=== PATIENT | female | born 1930 | race Caucasian/White ===

== ENCOUNTER → 2016-05-05 | Day surgery (SDC) | payer MEDICARE, BC ==
[~2016-05-05] MED LIST: ACETAMINOPHEN PO; ALTACE PO; ALTACE10 M1 PO; ALTACE10 M2 PO; AMIODIPINE PO; AMLODIPINE BESY10 MG PO; ANTI-DIARRHEAL2 M1 PO; ATORVASTATIN PO; CIPRO PO; COUMADIN PO; COUMADIN2.5 MG PO; COUMADIN5 MG PO; GABAPENTIN PO; GABAPENTIN300 M2 PO; HYDROCODON-ACE1 EAC7 PO; HYDROCODON-ACE1 EACH PO; HYDROCODONE-APA1 T55 PO; IMDUR PO; KEFLEX500 MG PO; LASIX PO; LIPITOR40 MG PO; LOPRESSOR PO; NORCO 5MG PO; NORCO1 TAB 10/3 PO; PARAFON FORTE500 M1 PO; PLAVIX PO; POTASSIUM CHLOR8 ME2 PO; POTASSIUM CHLOR8 MEQ PO; POTASSIUM PO; PREVACID PO; PRISTIQ50 MG PO; QUESTRAN POWDER4 GM PO; RAMIPRIL PO; SIMVASTATIN80 MG PO; TOPROL XL PO; TYLOX 5/500 CAP1 CAP PO; VITAMIN D; VYTORIN PO; WALMART PHARMACY; WARFARIN PO
--- NOTE | ~2016-05-05 | OR ---
Unit #: [id number] #: [id number] Patient: SHARRON NORWOOD [id number] [address] [place], [place] [address] [id number] O MR#: [id number] NAME: SHARRON NORWOOD. ROOM: Date of Procedure: 05/05/2016 Admission Date: 05/05/2016 Surgeon: Juan Lopez M.D. : 1930 Attending Physician: Juan Lopez M.D. Referring Physician: Juan Lopez M.D. Primary Care Physician: Teja Christensen D.O. SUR[facility] CENTER OPERATIVE NOTE PROCEDURE PERFORMED Lumbar epidural steroid injection under x-ray guided needle placement with provider administered conscious sedation. PREOPERATIVE DIAGNOSES 1. Acute lumbar radiculitis. 2. Spinal stenosis, lumbosacral spine. 3. Anterolisthesis, L4-L5. 4. Degenerative joint disease, lumbosacral spine. 5. Degenerative disk disease, lumbosacral spine. 6. Facet arthrosis, lumbosacral spine. INDICATIONS FOR PROCEDURE The patient presents today with longstanding history of chronic lumbar radicular pain secondary to her underlying degenerative processes. She is generally fairly well managed medically, but does occasionally experience acute exacerbations, which to date have only responded to interventional pain management procedure. She was doing very well until approximately 2 weeks ago when she developed just such an exacerbation which broke through her use one ongoing continuous conservative measures. She presents today requesting an epidural steroid injection as well as referral for potential medical management. After discussing risks and benefits of proceeding today with a lumbar approach epidural steroid injection, the patient agreed this would be the appropriate course of action. She was also referred to Dr. Bora Gibson to take over all care including all procedures at this patient. DESCRIPTION OF PROCEDURE Following these discussions, the L4-L5 space was accessed using loss of resistance technique and x-ray guidance. Needle placement was confirmed with injection of 2 mL of Omnipaque. There was good superior and inferior flow at this L4-L5 needle placement. Following successful needle placement confirmation, the patient received an injectate containing 4 mL normal saline and 80 mg of methylprednisolone. She tolerated this procedure well. She was discharged home with followup instructions, which include an offer to return to this date on 08/13/2016 if she desired further treatment in this clinic; however, if she desires treatment at another venue, we gave her full support and will cooperate with medical records and whatever other as needed. Dictated by... Juan Lopez M.D. Unit #: [id number] #: [id number] Patient: SHARRON NORWOOD JRG/modl TD: 05/06/2016 01:08 JOB #: [id number] CC: Steven Palafox M.D. SURGERY CENTER OPERATIVE NOTE X Franco Lopez MD PROCEDURE OPERATIVE NOTE
== END | disposition home or self-care (01) ==
LOC: CCSC 09:15
DX: M47.27 Other spondylosis with radiculopathy, lumbosacral region (principal); M51.17 Intervertebral disc disorders with radiculopathy, lumbosacral region; M43.16 Spondylolisthesis, lumbar region; M48.07 Spinal stenosis, lumbosacral region; I25.10 Atherosclerotic heart disease of native coronary artery without angina pectoris; N39.3 Stress incontinence (female) (male); Z96.653 Presence of artificial knee joint, bilateral; Z90.710 Acquired absence of both cervix and uterus; Z90.2 Acquired absence of lung [part of]
CPT/HCPCS: J1040; J2250; J3010

== ENCOUNTER 2016-06-13 10:26 | Emergency (ER) | payer MEDICARE, BC ==
[~2016-06-13 10:26] MED LIST changes: -AMIODIPINE PO; -ATORVASTATIN PO; -GABAPENTIN PO; -HYDROCODON-ACE1 EAC7 PO; -LASIX PO; -NORCO 5MG PO; -POTASSIUM CHLOR8 MEQ PO; -POTASSIUM PO; -QUESTRAN POWDER4 GM PO; -RAMIPRIL PO; -VITAMIN D; -WARFARIN PO
[2016-06-18] MEDS ORDERED: QUESTRAN POWDER4 GM PO (12:29)
[2016-08-20] MEDS ORDERED: LASIX PO (11:48)
[2016-08-20] MEDS ORDERED: POTASSIUM CHLOR8 MEQ PO (11:49)
[2016-08-21] MEDS ORDERED: HYDROCODON-ACE1 EAC7 PO (08:50)
== END 2016-06-13 11:02 | disposition home or self-care (01) ==
LOC: SED 10:26
DX: L03.116 Cellulitis of left lower limb (principal); L03.115 Cellulitis of right lower limb; I11.0 Hypertensive heart disease with heart failure; I50.9 Heart failure, unspecified; Z90.49 Acquired absence of other specified parts of digestive tract; Z95.1 Presence of aortocoronary bypass graft; Z88.0 Allergy status to penicillin
CPT/HCPCS: 99282

== ENCOUNTER 2016-06-18 12:55 | Emergency (ER) | payer MEDICARE, BC ==
[~2016-06-18 12:55] MED LIST changes: +QUESTRAN POWDER4 GM PO
[2016-08-20] MEDS ORDERED: LASIX PO (11:48)
[2016-08-20] MEDS ORDERED: POTASSIUM CHLOR8 MEQ PO (11:49)
[2016-08-21] MEDS ORDERED: HYDROCODON-ACE1 EAC7 PO (08:50)
== END 2016-06-18 13:51 | disposition home or self-care (01) ==
LOC: SED 12:55
DX: S80.01XA Contusion of right knee, initial encounter (principal); W18.30XA Fall on same level, unspecified, initial encounter; Y92.531 Health care provider office as the place of occurrence of the external cause
CPT/HCPCS: 99283

== ENCOUNTER → 2016-07-18 | Outpatient (CLI) | payer MEDICARE, BC ==
[~2016-07-18] MED LIST changes: +AMIODIPINE PO; +ATORVASTATIN PO; +GABAPENTIN PO; +HYDROCODON-ACE1 EAC7 PO; +LASIX PO; +NORCO 5MG PO; +POTASSIUM CHLOR8 MEQ PO; +POTASSIUM PO; +RAMIPRIL PO; +VITAMIN D; +WARFARIN PO
--- NOTE | ~2016-07-18 | CR186 ---
[facility]. [facility] A Service of [facility] RADIOLOGY TEXT RESULTS PATIENT: SHARRON NORWOOD LOCATION: [facility] : 30 UNIT #: [id number] AGE: [address]: Bora Gibson MD SEX: F ORDER DR: [id number] [address] [address] [id number] O MR#: [id number] Acc #: [id number] NAME: SHARRON NORWOOD : 1930 SEX: F STUDY DATE/TIME: 07/18/2016 11:55 UNIT: [facility] ROOM: STUDY DESCRIPTION: CR Lumbar Spine W Bend Min 6 V Attending Physician: Bora Gibson M.D. Referring Physician: Bora Gibson M.D. Ordering Physician: Teja Christensen D.O. Primary Care Physician: Teja Christensen D.O. MEDICAL IMAGING REPORT This report is preliminary unless electronic signature is present. EXAM Four views of the lumbar spine with flexion and extension Date: 07/18/2016 HISTORY Back pain since December 2016. No known injury. COMPARISON CT abdomen and pelvis bone windows 06/19/2010. No prior dedicated lumbar spine imaging at this institution for comparison. FINDINGS AP, lateral, lateral extension and lateral flexion views were obtained. No acute lumbar spine fracture is seen. There is advanced diminished disc height at L5-S1. Facet arthropathy is present at nearly every lumbar level, thought to be greatest at L4-5 and L5-S1. There is approximately 6 mm anterolisthesis L4 upon L5 which does not appear to be exacerbated or reduced upon flexion or extension maneuvers. There is mild diminished disc height at L1-2 and L2-3. There is very mild lumbar dextroscoliosis centered at L3-4. IMPRESSION 1. A 6 mm (grade 1) anterolisthesis of L4 upon L5. No evidence of lumbar spine instability upon flexion and extension maneuvers. 2. Multilevel degenerative facet arthropathy greatest at L4-L5 and L5-S1. 3. Advanced loss of disc height at L5-S1. [facility] A Service [facility] RADIOLOGY TEXT RESULTS PATIENT: SHARRON NORWOOD LOCATION: [facility] : 30 UNIT #: [id number] AGE: [address]: Bora Gibson MD SEX: F ORDER DR: 4. Mild lumbar dextroscoliosis. Dictated by... Cynthia Martins M.D. THIS IS AN ELECTRONICALLY VERIFIED REPORT Cynthia Martins M.D. at 07/21/2016 8:33 AM SORAIDA/tangela TD: 07/18/2016 19:40 JOB #: [id number] MEDICAL IMAGING REPORT Page 1 of 1
== END | disposition home or self-care (01) ==
LOC: SRAD 11:46
DX: M54.5 Low back pain (principal); M43.16 Spondylolisthesis, lumbar region; M46.96 Unspecified inflammatory spondylopathy, lumbar region; M51.86 Other intervertebral disc disorders, lumbar region; M41.9 Scoliosis, unspecified
CPT/HCPCS: 72114

== ENCOUNTER → 2016-08-21 | Day surgery (SDC) | payer MEDICARE, BC ==
--- NOTE | ~2016-08-21 | OR ---
Unit #: [id number] #: [id number] Patient: SHARRON NORWOOD [id number] [address] [place], [place] [address] [id number] O MR#: [id number] NAME: SHARRON NORWOOD. ROOM: Date of Procedure: 08/21/2016 Admission Date: 08/21/2016 Surgeon: Bora Gibsno M.D. : 1930 Attending Physician: Bora Gibsno M.D. Primary Care Physician: Teja Christensen D.O. OPERATIVE REPORT PREOPERATIVE DIAGNOSES Back pain, spondylolisthesis, degenerative facet disease. POSTOPERATIVE DIAGNOSES Back pain, spondylolisthesis, degenerative facet disease. PROCEDURE PERFORMED Lumbar facet injection x2 levels with intravenous sedation and fluoroscopic guidance for needle localization. INDICATIONS FOR PROCEDURE The patient is an 86-year-old female with back and at times left leg pain. She was treated with rehabilitation, epidural steroid injection via different positions, and the third epidural did help to settle her left leg pain, but did not help her back very much. Workup demonstrated significant facet disease at L4-L5 and L5-S1 as well as stable spondylolisthesis at L4-L5. Plan is for trial of diagnostic and therapeutic facet injections if the patient has failed multiple attempts at conservative treatment. Risks and benefits of all reviewed. DESCRIPTION OF PROCEDURE The patient was placed in a prone position. Standard monitors were applied. 1 mg of Versed was given for sedation and anxiolysis, which were adequate. Vital signs remained stable. Sterile prep and drape then of the lumbosacral area was performed. Fluoroscopy was used to identify the location of the L4-L5 and L5-S1 facet joints. The skin overlying this was localized with 1% lidocaine. In the left side, first a 22-gauge Quincke point needles were advanced down into the L4-L5 and L5-S1 facet joints using fluoroscopic guidance. The patient had no complaints of pain or paresthesia. After confirming proper positioning within the edge of these facet joints, dose of 1 mL of a mixture of 80 mg of Depo-Medrol and 3 mL of 0.25% bupivacaine were deposited in each 0.5 mL within the joint and 0.5 mL just outside the joint. The needles were flushed and removed. The exact same procedure was then repeated at the right at the L4-L5 and L5-S1 facet joints. The same dosing of medications was used after fluoroscopic confirmation with proper needle tip positioning. The needles were flushed and removed. The patient tolerated the procedure otherwise well and was discharged to the recovery room in stable condition. Dictated by... Unit #: [id number] #: [id number] Patient: KATARINA NORWOODSteven Diez/john TD: 08/21/2016 23:23 JOB #: [id number] OPERATIVE REPORT Page 1 of 1 X Bora Gibson MD X PROCEDURE OPERATIVE NOTE
== END | disposition home or self-care (01) ==
LOC: CCSC 08:06
DX: M47.26 Other spondylosis with radiculopathy, lumbar region (principal); M43.16 Spondylolisthesis, lumbar region
CPT/HCPCS: J1040; J2250

== ENCOUNTER 2016-11-07 09:58 | Emergency (ER) | payer MEDICARE, BC ==
--- NOTE | ~2016-11-07 | CR170 ---
[facility]. [facility] A Service of [facility] RADIOLOGY TEXT RESULTS PATIENT: SHARRON NORWOOD LOCATION: SED : 30 UNIT #: [id number] AGE: [address]: Era Trujillo APRN SEX: F ORDER DR: [id number] [address] [address] [id number] MR#: [id number] Acc #: [id number] NAME: SHARRON NORWOOD. : 1930 SEX: F STUDY DATE/TIME: 11/07/2016 11:29 UNIT: SED ROOM: STUDY DESCRIPTION: CR Knee 2 Views Rt Attending Physician: Era Trujillo A.P.R.N. Ordering Physician: Era Trujillo A.P.R.N. Primary Care Physician: Teja Christensen D.O. MEDICAL IMAGING REPORT This report is preliminary unless electronic signature is present. EXAM Right knee, 2 views, 11/07/2016, 11:29 a.m.; [facility]. COMPARISON No right knee radiographs. HISTORY History sheet states abrasion and pain. Symptoms began last night and early this a.m. after falling on carpet. 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 FINDINGS No effusion or hemarthrosis is noted. Right knee arthroplasty has an unremarkable appearance. There is no periprosthetic fracture. No effusion or hemarthrosis is seen. Bones appear demineralized. Vascular calcification is noted. Suprapatellar calcification could possibly reflect a loose body. IMPRESSION 1. No acute abnormality is noted. The prosthetic right knee shows no periprosthetic fracture or effusion. 2. Possible calcified loose bodies suprapatellar bursa may be of no current concern. Dictated by... Aurora Nuñez M.D. THIS IS AN ELECTRONICALLY VERIFIED REPORT Aurora Nuñez M.D. at 11/08/2016 8:39 AM [facility] A Service of [facility] RADIOLOGY TEXT RESULTS PATIENT: SHARRON NORWOOD LOCATION: [facility] : 30 UNIT #: [id number] AGE: [address]: Era Trujillo APRN SEX: F ORDER DR: TD: 11/07/2016 14:46 JOB #: [id number] MEDICAL IMAGING REPORT Page 1 of 1
[~2016-11-07 09:58] MED LIST changes: -AMIODIPINE PO; -ATORVASTATIN PO; -GABAPENTIN PO; -NORCO 5MG PO; -POTASSIUM PO; -RAMIPRIL PO; -VITAMIN D; -WARFARIN PO
[2016-11-07] MEDS ORDERED: WARFARIN PO (10:04)
[2016-11-07] MEDS ORDERED: ATORVASTATIN PO (10:06)
[2016-11-07] MEDS ORDERED: LASIX PO (10:06)
[2016-11-07] MEDS ORDERED: VITAMIN D (10:06)
[2016-11-07] MEDS ORDERED: POTASSIUM PO (10:06)
[2016-11-07] MEDS ORDERED: RAMIPRIL PO (10:07)
[2016-11-07] MEDS ORDERED: AMIODIPINE PO (10:07)
[2016-11-07] MEDS ORDERED: GABAPENTIN PO (10:07)
[2016-11-07] MEDS ORDERED: NORCO 5MG PO (10:13)
[2016-11-07 10:58] LABS: INR 2.9; PROTHROMBIN TIME (PATIENT) 33.5 SECONDS (9.5-12.4)
== END 2016-11-07 12:37 | disposition home or self-care (01) ==
LOC: SED 09:58
PROVIDERS: Nurse Practitioner Family
DX: S80.01XA Contusion of right knee, initial encounter (principal); Z88.0 Allergy status to penicillin; Z79.01 Long term (current) use of anticoagulants; Z79.899 Other long term (current) drug therapy; W10.9XXA Fall (on) (from) unspecified stairs and steps, initial encounter; Y92.009 Unspecified place in unspecified non-institutional (private) residence as the place of occurrence of the external cause
CPT/HCPCS: 29530; 36415; 73560; 85610; 85730; 99283